=== PATIENT | male | born 1955 | race Caucasian/White ===

== ENCOUNTER 2020-03-11 11:30 | Inpatient (IN) | payer OTHER ==
[~2020-03-11] VITALS: Ht 180.3 cm; Wt 101.9 kg
[~2020-03-11 11:30] MED LIST: ACETAMINOPHEN325 M1 PO; IBUPROFEN 200200 M1 PO; LEVO-T100 MCG PO; NORCO 5-325 TA1 EAC1 PO; PENICILLIN V P500 MG PO; ZOCOR 20 MG TAB20 M1 PO
[2020-03-11] MEDS ORDERED: LIPITOR 40 MG T40 M1 PO (11:46)
[2020-03-11] MEDS ORDERED: CARVEDILOL3.125 MG PO (11:46)
[2020-03-11] MEDS ORDERED: ASPIR 8181 MG PO (11:49)
[2020-03-11 14:30] VITALS: BP 117/71
[2020-03-11 15:50] LABS: URINE BILIRUBIN NEGATIVE (Negative); URINE BLOOD 1+ (Negative); URINE CLARITY CLEAR; URINE COLOR YELLOW; URINE GLUCOSE-RANDOM* NEGATIVE (Negative); URINE KETONES NEGATIVE (Negative); URINE LEUKOCYTES-REFLEX NEGATIVE (Negative); URINE NITRITE-REFLEX NEGATIVE (Negative); URINE PROTEIN (DIPSTICK) NEGATIVE (Negative); URINE UROBILINOGEN 0.2 E.U./dl (0.2-1.0)
[2020-03-11 16:00] VITALS: BP 117/71
[2020-03-11 16:10] LABS: BACTERIA-REFLEX 1-9 Few /HPF (None Seen); CASTS None Seen /LPF (None Seen); CRYSTALS None Seen /LPF (None Seen); SQUAMOUS None Seen /LPF (0-3); URINE RBC None Seen /HPF (0-2); URINE WBC-REFLEX None Seen /HPF (0-5)
--- NOTE | 2020-03-11 19:23 | NUR ---
PT CARE ASSUMED APPROX 1430. ASSESSMENT CHARTED. MEDICATION CHARTED. RAC IV; AGGRASTAT UNTIL 0100 03/12/20 THEN D/C. CATH 03/07; RT GROIN, LOTS OF BRUISING; [address] MAIN. CABG 03/12/20. MRSA, COVID, CAROTID, UA COMPLETED AT [facility] ([facility] MRSA, UA COMPLETED HER TO BE CERTAIN IT WAS DONE IN TIME. PT IN US FOR VEIN STUDY AT 1830. PHARMACY OBTAINING AGGRASTAT FROM [facility]) IT IS NOT ON OUR FORMULARY.
[2020-03-11 20:00] VITALS: BP 129/72
[2020-03-12] VITALS (7 sets, daily range): BP systolic 88–120; BP diastolic 55–71
--- NOTE | 2020-03-12 04:20 | NUR ---
ASSESSMENTS CHARTED, MEDS CHARTED GIVEN. PATIENT RESTING IN BED DURING SHIFT. DENIED PAIN. PATIENT ON IV MED AGGRASTA. THIS IS A MED WE NORMALLY DO NOT HAVE AVAILABLE. PHARMACY HAD SOME SENT FROM [facility] WHERE THIS PATIENT TRANSFERED FROM. MED WAS GIVEN UNTIL 0100 THEN DC'D PER DOCTORS ORDERS. PATIENT TOOK HEPACLENS SHOWER LAST NIGHT AND WILL REPEAT SHOWER THIS MORNING PRIOR TO LEAVING FOR CABG. NPO SINCE MIDNIGHT. PATIENT HAS RIGHT GROIN BRUISING FROM PREVIOUS CATH PROCEDURE.
[2020-03-12 04:37] LABS: CALCIUM 9.3 mg/dL (8.5-10.1); POTASSIUM 4.1 mmol/L (3.5-5.1)
[2020-03-12 04:40] LABS: HEMATOCRIT 37.9 % (42.0-52.0); HEMOGLOBIN 12.7 gm/dL (14.0-18.0); MCH 33.7 pg (26.0-34.0); MCHC 33.7 g/dL (28.0-37.0); RBC 3.79 mil/uL (4.50-6.00); WBC 11.1 thou/uL (4.0-11.0)
[2020-03-12 12:16] LABS: MCH 33.7 pg (26.0-34.0); MCHC 33.8 g/dL (28.0-37.0); MCV 99.8 fL (80.0-100.0); RBC 2.62 mil/uL (4.50-6.00); RDW 12.9 % (10.5-14.5); WBC 16.8 thou/uL (4.0-11.0)
[2020-03-12 12:17] LABS: HEMATOCRIT 26.1 % (42.0-52.0); HEMOGLOBIN 8.8 gm/dL (14.0-18.0)
[2020-03-12 12:32] LABS: APTT 27.3 Seconds (24.5-32.8); FIBRINOGEN 380.4 mg/dL (210-360); INR 1.3; PROTIME 13.8 Seconds (9.3-11.4)
[2020-03-12 13:05] LABS: POC BE -1 mmol/L (-2.0 to +3.0); POC GLUCOSE 106 mg/dL (70-99); POC HCO3 24.1 mmol/L (22.0-26.0); POC HEMOGLOBIN 11.6 g/dL (14.0-18.0); POC POTASSIUM 4.4 mmol/L (3.5-5.1); POC SODIUM 137 mmol/L (136-145); POC pCO2 39.8 mmHg (35.0-45.0)
[2020-03-12 13:06] LABS: POC BE -2 mmol/L (-2.0 to +3.0); POC CA IONIZED 4.6 mg/dL (4.5-5.3); POC GLUCOSE 200 mg/dL (70-99); POC HCO3 24.4 mmol/L (22.0-26.0); POC HEMOGLOBIN 9.2 g/dL (14.0-18.0); POC POTASSIUM 5.4 mmol/L (3.5-5.1); POC SODIUM 137 mmol/L (136-145); POC pCO2 49.1 mmHg (35.0-45.0); POC pH 7.304 (7.360-7.450)
[2020-03-12 13:06] LABS: POC BE -3 mmol/L (-2.0 to +3.0); POC CA IONIZED 5.6 mg/dL (4.5-5.3); POC GLUCOSE 187 mg/dL (70-99); POC HCO3 23.2 mmol/L (22.0-26.0); POC HEMOGLOBIN 8.5 g/dL (14.0-18.0); POC POTASSIUM 4.3 mmol/L (3.5-5.1); POC SODIUM 137 mmol/L (136-145); POC pCO2 48.2 mmHg (35.0-45.0)
[2020-03-12 13:06] LABS: POC BE -5 mmol/L (-2.0 to +3.0); POC CA IONIZED 4.5 mg/dL (4.5-5.3); POC GLUCOSE 165 mg/dL (70-99); POC HCO3 20.9 mmol/L (22.0-26.0); POC HEMOGLOBIN 9.5 g/dL (14.0-18.0); POC POTASSIUM 5.2 mmol/L (3.5-5.1); POC SODIUM 134 mmol/L (136-145); POC pCO2 38.9 mmHg (35.0-45.0); POC pH 7.339 (7.360-7.450)
[2020-03-12 13:06] LABS: POC BE -1 mmol/L (-2.0 to +3.0); POC CA IONIZED 4.9 mg/dL (4.5-5.3); POC GLUCOSE 144 mg/dL (70-99); POC HCO3 24.4 mmol/L (22.0-26.0); POC HEMOGLOBIN 11.6 g/dL (14.0-18.0); POC POTASSIUM 4.8 mmol/L (3.5-5.1); POC SODIUM 136 mmol/L (136-145); POC pCO2 41.3 mmHg (35.0-45.0)
[2020-03-12 13:06] LABS: POC BE 0 mmol/L (-2.0 to +3.0); POC CA IONIZED 4.5 mg/dL (4.5-5.3); POC GLUCOSE 211 mg/dL (70-99); POC HCO3 26.5 mmol/L (22.0-26.0); POC HEMOGLOBIN 9.2 g/dL (14.0-18.0); POC POTASSIUM 5.5 mmol/L (3.5-5.1); POC SODIUM 138 mmol/L (136-145); POC pCO2 54.7 mmHg (35.0-45.0); POC pH 7.294 (7.360-7.450)
[2020-03-12 13:06] LABS: POC BE -3 mmol/L (-2.0 to +3.0); POC CA IONIZED 4.6 mg/dL (4.5-5.3); POC GLUCOSE 219 mg/dL (70-99); POC HCO3 25.4 mmol/L (22.0-26.0); POC HEMOGLOBIN 8.8 g/dL (14.0-18.0); POC POTASSIUM 5.2 mmol/L (3.5-5.1); POC SODIUM 135 mmol/L (136-145); POC pCO2 68.9 mmHg (35.0-45.0); POC pH 7.174 (7.360-7.450)
[2020-03-12 13:06] LABS: POC BE -2 mmol/L (-2.0 to +3.0); POC GLUCOSE 154 mg/dL (70-99); POC HCO3 23.4 mmol/L (22.0-26.0); POC HEMOGLOBIN 9.5 g/dL (14.0-18.0); POC POTASSIUM 4.2 mmol/L (3.5-5.1); POC SODIUM 139 mmol/L (136-145); POC pCO2 43.8 mmHg (35.0-45.0); POC pH 7.337 (7.360-7.450)
[2020-03-12 13:06] LABS: POC BE -2 mmol/L (-2.0 to +3.0); POC CA IONIZED 4.4 mg/dL (4.5-5.3); POC GLUCOSE 211 mg/dL (70-99); POC HCO3 24.6 mmol/L (22.0-26.0); POC HEMOGLOBIN 9.2 g/dL (14.0-18.0); POC POTASSIUM 5.4 mmol/L (3.5-5.1); POC SODIUM 135 mmol/L (136-145); POC pCO2 49.5 mmHg (35.0-45.0); POC pH 7.303 (7.360-7.450)
[2020-03-12 13:58] LABS: HEMATOCRIT 30.9 % (42.0-52.0); HEMOGLOBIN 10.4 gm/dL (14.0-18.0); MCH 33.6 pg (26.0-34.0); MCHC 33.7 g/dL (28.0-37.0); MCV 99.6 fL (80.0-100.0); RBC 3.1 mil/uL (4.50-6.00); WBC 24.2 thou/uL (4.0-11.0)
[2020-03-12 14:12] LABS: CREATININE 1.1 mg/dL (0.7-1.3); MAGNESIUM 2.7 mg/dL (1.8-2.4); POTASSIUM 4.6 mmol/L (3.5-5.1)
[2020-03-12 14:14] LABS: APTT 28.4 Seconds (24.5-32.8); INR 1.2; PROTIME 11.9 Seconds (9.3-11.4)
[2020-03-12 14:22] LABS: BE(vivo) -4.5 mmol/L (-2 to +3); HCO3 21.7 mmol/L (22.0-26.0); PCO2 44.6 mmHg (35.0-45.0); PO2 82.9 mmHg (80.0-100.0); sO2 95.2 % (92.0-98.0)
[2020-03-12 14:23] LABS: pH 7.305 (7.360-7.450)
--- NOTE | 2020-03-12 15:00 | NUR ---
PT CAME FROM THE OR ACCOMPANIED BY NURSING STAFF AT 1332. PT WAS CONNECTED TO ICU MONITORS. PT ON VENTILATOR. PT ON CARDENE AND PROPOFOL GTT. DR. RAMÍREZ AND SAYRA AT BEDSIDE. CONTINUE TO MONITOR.
--- NOTE | 2020-03-12 16:02 | EKG ---
[facility] [place] [address] ELECTROCARDIOGRAM REPORT Name: CHELITA BARRDIE Room #: 251-P ADM IN M.R.#: [id number] Admission: 03/11/20 Attend Phys: Jalen Goodman MD Discharge: Date of : 57 Report #: [id number] THIS REPORT FOR: cc: NORAH - Kylah family physician/PCP NORAH - Kylah family physician/PCP Isidro Nelson MD [facility] THIS REPORT FOR: //name// [facility] Test Date: 2020-03-12 Test Time: 15:24:21 Pat Name: QUIRINO BARR Department: Room: [facility] Gender: M Ssis Etl Developer: BPIERCE2 : 1955 Requested By: Daniel Epps Order Number: [id number] MD: Isidro Nelson Measurements Intervals [place] Rate: 88 P: 0 OK: 162 QRS: 15 QRSD: 96 T: 13 QT: 332 QTc: 402 Interpretive Statements Sinus rhythm Probable left atrial enlargement Abnormal R-wave progression, early transition Borderline repolarization abnormality No previous ECG available for comparison Electronically Signed On 03-12-2020 16:02:40 CDT by Isidro Nelson [email or web address] <ELECTRONICALLY SIGNED> By: Isidro Nelson MD, FACC 03/12/20 1602 1524 1524 Isidro Nelson MD, [facility] /EPI
[2020-03-12 16:26] LABS: BE(vivo) -5.8 mmol/L (-2 to +3); HCO3 19.7 mmol/L (22.0-26.0); PCO2 38.5 mmHg (35.0-45.0); PO2 101.6 mmHg (80.0-100.0); pH 7.326 (7.360-7.450); sO2 97.3 % (92.0-98.0)
--- NOTE | 2020-03-12 17:00 | NUR ---
PT OFF SEDATION. ATTEMPTED CPAP TRIAL AT 1545 FOR 30 MINUTES. ABG WERE DONE. ABG RESULT CALLED TO SAYRA AT 1625. PT EXTUBATED AT 1630 BY RT XIN. PT CURRENTLY ON 35% FACEMASK. CONTINUE TO MONIOR.
[2020-03-12 21:04] LABS: HEMATOCRIT 25.8 % (42.0-52.0); HEMOGLOBIN 8.8 gm/dL (14.0-18.0); MCH 33.7 pg (26.0-34.0); MCHC 34.2 g/dL (28.0-37.0); MCV 98.7 fL (80.0-100.0); RBC 2.62 mil/uL (4.50-6.00); RDW 12.7 % (10.5-14.5); WBC 16.4 thou/uL (4.0-11.0)
[2020-03-13] VITALS (43 sets, daily range): BP systolic 104–136; BP diastolic 46–74
[2020-03-13 06:36] LABS: HEMATOCRIT 22.3 % (42.0-52.0); HEMOGLOBIN 7.4 gm/dL (14.0-18.0); MCH 33.3 pg (26.0-34.0); MCHC 33.1 g/dL (28.0-37.0); MCV 100.4 fL (80.0-100.0); RBC 2.22 mil/uL (4.50-6.00); RDW 13.1 % (10.5-14.5); WBC 13.4 thou/uL (4.0-11.0)
[2020-03-13 06:57] LABS: CALCIUM 8.3 mg/dL (8.5-10.1); CREATININE 1.4 mg/dL (0.7-1.3); MAGNESIUM 2.6 mg/dL (1.8-2.4); POTASSIUM 4.6 mmol/L (3.5-5.1)
[2020-03-13 07:09] LABS: INR 1.4; PROTIME 14.5 Seconds (9.3-11.4)
--- NOTE | 2020-03-13 07:40 | NUR ---
SEE CEED Tech FOR ASSESSMENT. PT C/O OF SURGICAL PAIN-FENTANYL IV GIVEN ORDERED. UNABLE TO TAKE HYDROCODONE FOR BETTER PAIN CONTROL. MONITOR SHOWS SR. HEMODYNAMICS IMPROVED WITH FLUIDS, UO ADEQUATE, AND MSCT DRAINAGE SLOWED DOWN. ON 4LNC. 02SAT WNL. CONT TO ENC D/DB IS UP TO 1000. DRSG D/I. WILL CONT TO MONITOR. CONT PLAN OF CARE
--- NOTE | 2020-03-13 08:22 | EKG ---
[facility] [place] [address] ELECTROCARDIOGRAM REPORT Name: QUIRINO BARR Room #: 251-P ADM IN M.R.#: [id number] Admission: 03/11/20 Attend Phys: Jalen Goodman MD Discharge: Date of : 57 Report #: [id number] THIS REPORT FOR: cc: NORAH - Kylah family physician/PCP NORAH - Kylah family physician/PCP Sabas Bojorquez MD [facility] THIS REPORT FOR: //name// [facility] Test Date: 2020-03-13 Test Time: 08:15:50 Pat Name: QUIRINO BARR Department: Room: 251 Gender: M Scientific Advisor: RACHANA : 1955 Requested By: Daniel Epps Order Number: [id number] MD: Sabas Bojorquez Measurements Intervals [place] Rate: 79 P: 22 DE: 120 QRS: -12 QRSD: 89 T: -33 QT: 384 QTc: 441 Interpretive Statements Sinus rhythm Atrial premature complexes Abnormal R-wave progression, early transition Inferior infarct, age indeterminate Compared to ECG 03/12/2020 15:24:21 Atrial premature complex(es) now present Electronically Signed On 03-13-2020 8:22:39 CDT by Sabas Bojorquez [email or web address] <ELECTRONICALLY SIGNED> By: Sabas Bojorquez MD, FACC 03/13/20821 4 4 Sabas Bojorquez MD, FACC /EPI
--- NOTE | 2020-03-13 08:59 | NUR ---
ALERT AND ORIENTED AND VITALS STABLE. C/O PAIN WITH DEEP BREATHING-STARTED ON IV TYLENOL. RASHI DC'D PER ORDER. RT. PNEUMOTHORAX REPORTED BY RADIOLOGIST TO SAYRA. CHEST TUBE PLACED AT BEDSIDE BY DR. RAMÍREZ AND PATIENT TOLERATED WELL. UPDATED OVER THE PHONE. OTHER CHEST TUBES AND INCISIONS DOCUMENTED.
--- NOTE | 2020-03-13 12:55 | NUR ---
Nutrition: Pt POD 1 CABG. Consult received. Will followup when out of ICU to determine education needs
--- NOTE | 2020-03-13 14:07 | NUR ---
chart review. unable to visit with sarah jefferson resting. cm left message on his phone. cm spoke with benny via phone call, intro to cm and dcp. she reported, we live in , 3 steps to enter. he has been helping me for my low bp last 4 months. i am wheel bound. he is independent, no on any medications. drives vehicle and i am worried cause he drove himself to the hospital. he was working outside home till i go sick. have our daughter, she works and has kids. i am staying for 5 days with my mom but she is in senior community and not sure where i can go after 5 days, i cant stay here. his pcp ragini west with [facility] in [place]. never needed any help, no hh or rehab in the past. just worried about him, glade he made it to hospital driving himself.
--- NOTE | 2020-03-13 15:22 | NUR ---
DR. PRIETO'S NURSE HARLEY NOTIFIED OF CONSULT AND WILL PASS IT ON TO MD TO ROUND ON PATIENT. PATIENT UP IN THE CHAIR WITH ASSISTANCE FROM P.T. CONTINUES TO C/O PRN FENTANYL AND SCHEDULED I.V. TYLENOL ADMINISTERED.
--- NOTE | 2020-03-13 15:57 | O ---
[facility] [place] [address] [place] [address] OPERATIVE REPORT Name: QUIRINO BARR Room #: 251-P ADM IN M.R.#: [id number] Admission: 03/11/20 Attend Phys: Jalen Goodman MD Discharge: Date of : 57 Report #: [id number] THIS REPORT FOR: cc: NORAH - No family physician/PCP NORAH - No family physician/PCP Kanu Capps MD ~ CC: Jalen ALMAZAN physician/PCP DATE OF SERVICE: 03/12/2020 PREOPERATIVE DIAGNOSIS: Coronary artery disease. POSTOPERATIVE DIAGNOSIS: Coronary artery disease. OPERATION: Coronary artery bypass x 4 including left internal mammary artery to left anterior descending artery, saphenous vein to first marginal and distal marginal and saphenous vein to posterior descending artery and endoscopic harvest, left greater saphenous vein. SURGEON: Kanu Capps M.D. STRIPPING MACHINE OPERATOR: Mario Alberto Melara ANESTHESIA: General. INDICATIONS: The patient is a 64-year-old sent from [place] for coronary artery bypass surgery. The patient had acute myocardial infarct that was treated by Dr. Lopez and a heroic effort by dilating the high-grade left main coronary stenosis on 03/08/2020. The patient also has other important so called 3-vessel coronary artery disease. Left ventricular function is preserved thanks to the emergent angioplasty. FINDINGS AND TECHNIQUE: After general anesthesia was established, saphenous vein was harvested using an endoscopic approach and prepared for use as a conduit. Exposure was obtained through median sternotomy. Left internal mammary artery was harvested from chest wall. Pericardial well was made. Cannulation sutures were placed. Heparin was given. Aorta was cannulated. Right atrium was cannulated. Cardioplegia needle was positioned in the aortic root. Retrograde cardioplegic catheter was placed in the coronary sinus. Cardiopulmonary bypass was established. Aorta was cross clamped. Antegrade and retrograde cardioplegia were given. Ice was poured into the pericardial well. The heart was stopped. [facility] [address] [place] [address] OPERATIVE REPORT Name: QUIRINO BARR Room #: 251-P [facility] IN ..#: [id number] Admission: 03/11/20 Attend Phys: Jalen Goodman MD Discharge: Date of : 57 Report #: [id number] During electromechanical arrest, the distal anastomoses were performed. An end-to-side anastomosis was made between vein and the posterior descending artery. This was a diffusely diseased vessel, but it was 1.5 mm or bypassed. Cold cardioplegia was given. Separate segment of vein was sewn in end-to-side fashion to a large distal marginal. This was a 1.5 mm vessel. Cold cardioplegia was given. The same segment of vein was sewn in [id number] fashion to the first marginal. This was a 1.7 mm vessel. Cold cardioplegia was given. Left internal mammary artery was sewn in end-to-side fashion to the left anterior descending artery. Patency of this vessel was checked with the temperature technique. Cold cardioplegia was given. Two proximal anastomoses were performed. When these were complete, warm retrograde cardioplegia was given, followed by warm continuous blood. When this infusion was complete, the crossclamp was removed, de-airing maneuvers were performed. The anastomoses were inspected and found to be satisfactory. As the patient warmed, nice cardiac activity resumed, chest tubes and pacing wires were placed, a marker was placed around the proximal anastomoses. When the patient was warm, he was weaned from cardiopulmonary bypass. Venous cannula was removed. Protamine was given, the aortic cannula was removed. Flows were measured in the bypass grafts. When hemostasis was satisfactory, chest was irrigated with antibiotic solution and closed in the usual fashion. The patient was taken to the Intensive Care Unit in good condition having tolerated the procedure well. All counts reported as correct. <ELECTRONICALLY SIGNED> By: Kanu Capps MD 03/13/20 1557 1519 1540 Kanu Capps MD /nt
--- NOTE | 2020-03-13 15:57 | HC ---
[facility] [place] [address] CONSULTATION Name: QUIRINO BARR Room #: 251-P ADM IN M.R.#: [id number] Admission: 03/11/20 Attend Phys: Jalen Goodman MD Discharge: Date of : 57 Report #: [id number] THIS REPORT FOR: cc: FAM - No family physician/PCP FAM - No family physician/PCP Kanu Capps MD ~ DATE OF SERVICE: 03/11/2020 We were asked to see the patient by Dr. Crenshaw and Dr. Lopez. HISTORY OF PRESENT ILLNESS: The patient is a 64-year-old who was transferred from [place] for coronary artery bypass surgery. The patient was admitted on 03/08/2020 with acute myocardial infarct and this was treated with an acute angioplasty and stent placement in the left main coronary artery by Dr. Lopez at [place]. Left ventricular function was shown to have been preserved by echo after the procedure. The patient presented with several days of chest pain that became so called crushing chest pain. He was admitted with ST elevation ____ EKG and had emergent cardiac catheterization. Left main stenosis with thrombus was noted and treated. PAST MEDICAL HISTORY: The patient denies chronic disease. He is treated for elevated cholesterol. He also takes thyroid replacement, status post thyroidectomy. The patient denies diabetes mellitus and hypertension. SOCIAL HISTORY: The patient is a longtime smoker who had quit cigarettes and started cigars. 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 ALLERGIES: The patient states he has adverse reaction to hydrocodone that is not a true allergy. SOCIAL HISTORY: The patient is . 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 REVIEW OF SYSTEMS: CONSTITUTIONAL: No fever or chills. EYES: Wears glasses. HEENT: No headache, no hearing problems, no nasal discharge. RESPIRATORY: Denies cough, shortness of breath. CARDIAC: As mentioned several days of chest pain prior to the crushing pain at the presentation. GASTROINTESTINAL: No nausea, vomiting, diarrhea, or blood. GENITOURINARY: No urgency, frequency, or blood. MUSCULOSKELETAL: Denies bone and joint problems. NEUROLOGIC: Denies motor and sensory problems. [facility] [address] [place] [address] CONSULTATION Name: QUIRINO BARR Room #: 251-P [facility] IN ..#: [id number] Admission: 03/11/20 Attend Phys: Jalen Goodman MD Discharge: Date of : 57 Report #: [id number] SKIN: Denies rash or infection. PSYCHIATRIC: Denies depression or anxiety. PHYSICAL EXAMINATION: GENERAL: The patient is sitting in bed after transfer comfortable. VITAL SIGNS: Temperature 36.1, heart rate 62, blood pressure 117/71, respiratory rate 18. HEENT: No scleral icterus, no arcus. NECK: No mass, no bruit. We do note thyroidectomy incision. CHEST: Clear to auscultation. HEART: Rhythm regular, no murmurs. ABDOMEN: Soft, no mass, no tenderness. EXTREMITIES: No clubbing, cyanosis or edema. VASCULAR: No obvious saphenous vein problems, 1-2+ popliteal pulses bilaterally. I do not feel pedal pulses. SKIN: No rash or infection. MUSCULOSKELETAL: No bone or joint asymmetry or deformity. PSYCHIATRIC: Shows ____ problems, has a positive attitude and does not have a depressed affect. IMPRESSION: The patient has important 3-vessel coronary artery disease by cardiac catheterization. The patient has been transferred here for coronary bypass surgery. Risks and details of all those were discussed with the patient. Risks include but are not limited to bleeding, infection, anesthesia risks, heart problems, lung problems, stroke and . Options and alternatives were reviewed. The patient understands all of this and wishes to proceed. The patient is on Aggrastat drip and he will be maintained on this until approximately 6 hours before surgery. Thank you for the consult. <ELECTRONICALLY SIGNED> By: Kanu Capps MD 03/13/20 1557 1526 1953 Kanu Capps MD /nt
[2020-03-14] VITALS (24 sets, daily range): BP systolic 105–147; BP diastolic 53–87
[2020-03-14 05:36] LABS: HEMOGLOBIN 6.6 gm/dL (14.0-18.0); WBC 22.2 thou/uL (4.0-11.0)
[2020-03-14 05:38] LABS: MCH 33.4 pg (26.0-34.0); MCHC 33.5 g/dL (28.0-37.0); MCV 99.7 fL (80.0-100.0); RBC 1.99 mil/uL (4.50-6.00)
[2020-03-14 05:44] LABS: CALCIUM 8.9 mg/dL (8.5-10.1); CREATININE 1.3 mg/dL (0.7-1.3); POTASSIUM 4.4 mmol/L (3.5-5.1)
[2020-03-14 05:51] LABS: HEMATOCRIT 19.8 % (42.0-52.0)
--- NOTE | 2020-03-14 10:57 | NUR ---
PT/OT WORKED WITH PATIENT TODAY FROM 0437-9178
--- NOTE | 2020-03-14 12:23 | NUR ---
message from román from [employer] called if needed oupt needs call for assistance at [phone] ext [phone]. pt only been up out of bed to recliner chair. therapy going to come back and work with him later today.
--- NOTE | 2020-03-14 18:26 | NUR ---
ASSUMED CARE OF PT AT APPROX 1715 TRANSFER FROM ICU, CABG POD2. ASSESSMENT CHARTED. PT A&OX4, RATES PAIN 3/10, NO DISTRESS. PT SETTLED IN ROOM DINNER TRAY ARRIVED. WILL CONTINUE TO MONITOR AND FOLLOW POC.
[2020-03-15 04:15] VITALS: BP 118/65
[2020-03-15 05:40] LABS: HEMATOCRIT 22.4 % (42.0-52.0); HEMOGLOBIN 7.4 gm/dL (14.0-18.0); MCH 32.6 pg (26.0-34.0); MCHC 33.2 g/dL (28.0-37.0); MCV 98.3 fL (80.0-100.0); RBC 2.28 mil/uL (4.50-6.00); RDW 14.7 % (10.5-14.5); WBC 18.9 thou/uL (4.0-11.0)
[2020-03-15 05:55] LABS: CALCIUM 8.7 mg/dL (8.5-10.1); POTASSIUM 4.7 mmol/L (3.5-5.1)
[2020-03-15 07:40] VITALS: BP 100/60
--- NOTE | 2020-03-15 09:39 | NUR ---
ASSUMED CARE OF PT AT SHIFT CHANGE, ALL EQUIPMENT AND LINES IN PLACE, REPORTS OF CHEST TUBE EQUIPMENT W/LEAK AND ALL PHYSICIANS AWARE, CIPRIANO AND DR. RAMÍREZ CLAMPED HIS R CHEST TUBE THIS A.M., PT WITH SOA W/AMBULATION. GAVE INSTRUCTION/ENCOURAGEMENT ON THE DEEP SLOW INHALATIONS WITH LONG SLOW EXHALATION. PT TO WALK WITH PT WELL MARIELA CAN STACKER DID SO EARLIER THIS A.M. SEE SEPARATE INTERVENTIONS FOR ASSESSMENTS. WILL CONTINUE TO MONITOR
[2020-03-15 11:10] VITALS: BP 99/65
[2020-03-15 14:21] LABS: DIRECT BILIRUBIN 0.2 mg/dL (<0.1-0.2); TOTAL BILIRUBIN 0.5 mg/dL (0.2-1.0); TOTAL PROTEIN 6.4 g/dL (6.4-8.2)
--- NOTE | 2020-03-15 14:52 | NUR ---
FAXED REFERRAL TO [facility] SPOKE WITH FAVIOLA IN INTAKE SHE RECEIVED REFERRAL AND WILL BE ABLE TO ACCEPT LONG PT IS NOT ON IV ABX AND WILL PUT PT ON SCHEDULE FOR WEDNESDAY. IF PT DISCHARGES OVER WEEKEND FAX DC ORDERS TO [phone] AND CALL [phone] NOTIFY OF DC.
[2020-03-15 15:53] VITALS: BP 99/56
--- NOTE | 2020-03-15 17:11 | NUR ---
Case discussed with the care team. Pt is pod #3 s/p CABGx4. Chest tube being dc'd today per CTS but may need HH at dc. Pt started on iv vanco due to pneumonia. No weekend dc anticipated. [facility] is a [employer] provider if needed at dc ( but not able to do iv atb). Should the pt need a rehab consult, [facility] is out of network. Will reassess early next week for either HH at dc or rehab referrals.
[2020-03-15 19:45] VITALS: BP 108/80
[2020-03-16 03:25] VITALS: BP 96/59
[2020-03-16 04:27] LABS: HEMATOCRIT 21.9 % (42.0-52.0); HEMOGLOBIN 7.4 gm/dL (14.0-18.0); MCH 33.3 pg (26.0-34.0); MCHC 33.5 g/dL (28.0-37.0); MCV 99.4 fL (80.0-100.0); RBC 2.21 mil/uL (4.50-6.00); RDW 14.3 % (10.5-14.5); WBC 18.6 thou/uL (4.0-11.0)
[2020-03-16 04:46] LABS: CALCIUM 8.6 mg/dL (8.5-10.1); CREATININE 1.1 mg/dL (0.7-1.3); POTASSIUM 4.5 mmol/L (3.5-5.1)
--- NOTE | 2020-03-16 05:10 | NUR ---
ASSUMED PATIENT CARE AT 1845. VITAL SIGNS STABLE WITH PATIENT HAVING NO COMPLAINTS OF NAUSEA. PATIENT DID COMPLAIN OF PAIN ONCE AND WAS TREATED EFFECTIVELY THROUGH MEDICATION AND REPOSITIONING. FULLY ORIENTED, PATIENT IS ABLE TO CALL APPROPRIATELY FOR NEEDS AND PARTICIPATE IN CARE. BREATHING STABLE ON LOW LEVEL OXYGEN EVIDENCED BY ASSESSMENTS AND SPOT OXYGENATION CHECKS. SURGICAL SITES C/D/I WITH NO EVIDENCE OF BLEEDING FROM CHEST TUBE SITE. UP WITH ASSISTANCE INCIDENT FREE. CONTINUE PLAN OF CARE.
[2020-03-16 09:12] VITALS: BP 97/57
[2020-03-16 11:18] VITALS: BP 108/63
--- NOTE | 2020-03-16 11:18 | NUR ---
ASSUMED CARE OF PT AT SHIFT CHANGE, NO PAIN RELIEF MEDS IN BETWEEN HIS OXY Q 12H, PA COMING IN SOON SO ENCOURAGED PT TO REACH OUT IF HE SAW HIM FIRST. ENCOURAGED HIM TO USE CALL LIGHT FOR ANY NEEDS. SEE SEPARATE INTERVENTION FOR ASSESSMENTS. PT SHOWERED WITH OT AND DRESSING RE-DRESSED BY SAYRA WATSON. GOT PT COFFEE FROM [employer] OUR COFFEE HE WON'T TOUCH EVEN THOUGH HE DRINKS A POT A DAY, PER PT. HAS GLYCERIN SUPPOSITORY DUE, LAST EVENING DEFERRED, AND THIS A.M DEFERRED AND WANTS TO WAIT TO SEE IF HIS ACTIVITY AND [employer] COFFEE IS EFFECTIVE. WILL CONTINUE TO MONITOR
--- NOTE | 2020-03-16 13:10 | EKG ---
[facility] [address] [place] [address] ELECTROCARDIOGRAM REPORT Name: CHELITA BARRDIE Room #: 212-P ADM IN M.R.#: [id number] Admission: 03/11/20 Attend Phys: Jalen Goodman MD Discharge: Date of : 57 Report #: [id number] THIS REPORT FOR: cc: NORAH - No family physician/PCP FAM - No family physician/PCP Dex Mcgill MD ~ THIS REPORT FOR: //name// [facility] Test Date: 2020-03-16 Test Time: 08:30:55 Pat Name: QUIRINO BARR Department: Room: 212 P Gender: M [place] Measurer: Domonique CARO : 1955 Requested By: Daniel Epps Order Number: [id number] MD: Dex Mcgill Measurements Intervals [place] Rate: 64 P: 51 VT: 156 QRS: -10 QRSD: 94 T: 15 QT: 484 QTc: 500 Interpretive Statements Sinus rhythm early transition Inferior Q waves present consider inferior wall infarct old Nonspecific ST-T wave change compared to ECG 03/13/2020 08:15:50 No significant differences Electronically Signed On 03-16-2020 13:10:33 CDT by Dex Mcgill [email or web address] <ELECTRONICALLY SIGNED> By: Dex Mcgill MD 03/16/20 1310 9 9 Dex Mcgill MD /EPI
[2020-03-16 15:59] VITALS: BP 119/68
[2020-03-16 19:15] VITALS: BP 117/69
[2020-03-17 05:00] VITALS: BP 106/63
--- NOTE | 2020-03-17 06:52 | NUR ---
ASSUMED CARE OF PATIENT AT 1900; AOX4; ASSESSMENTS CHARTED; SR/BBB ON THE MONITOR/VSS; C/O OF NONCARDIAC CHEST PAIN WITH RELIEF FROM MEDICATION; RESTED QUIELTY THROUGHOUT THE NIGHT; PLAN IS TO CONTINUE ANTIBIOTICS AND CONSULT ID; WILL CONTINUE TO MONITOR
[2020-03-17 07:11] VITALS: BP 101/53
[2020-03-17 08:21] LABS: ALBUMIN 2.7 g/dL (3.4-5.0); CALCIUM 8.1 mg/dL (8.5-10.1); PHOSPHORUS 2.3 mg/dL (2.5-4.9); POTASSIUM 4.1 mmol/L (3.5-5.1); TOTAL BILIRUBIN 0.6 mg/dL (0.2-1.0); TOTAL PROTEIN 5.5 g/dL (6.4-8.2)
[2020-03-17 11:01] VITALS: BP 96/56
[2020-03-17 15:48] VITALS: BP 110/62
[2020-03-17 17:25] LABS: BE(vivo) 0.9 mmol/L (-2 to +3); HCO3 23.9 mmol/L (22.0-26.0); PCO2 31.3 mmHg (35.0-45.0); pH 7.501 (7.360-7.450); sO2 88.8 % (92.0-98.0)
[2020-03-17 17:26] LABS: PO2 49.6 mmHg (80.0-100.0)
[2020-03-17 18:11] LABS: HEMOGLOBIN 7.2 gm/dL (14.0-18.0)
[2020-03-17 18:13] LABS: MCH 32.8 pg (26.0-34.0); MCHC 32.7 g/dL (28.0-37.0); MCV 100.6 fL (80.0-100.0); PLATELET COUNT 176 thou/uL (150-400); RBC 2.18 mil/uL (4.50-6.00); RDW 14.8 % (10.5-14.5); WBC 20.8 thou/uL (4.0-11.0)
--- NOTE | 2020-03-17 18:35 | NUR ---
ASSESSMENT CHARTED. PT ALERT AND ORIENTED. SOB NOTED WITH ACTIVITY AND AT REST. PT REPORT HAVING DIFFICULTY BREATHING. RT CALLED FOR RT TREATMENT. DR MORRISSEY NOTIFIED. ORDERS GIVEN TO CONSULT DR. HENRY AND TO TRANSFER PT TO ICU. CRITICAL ABG'S CALLED IN TO DR. MORRISSEY AND DR. HENRY. BIPAP INITIATED. PT WAITING TO BE TRANSFERED TO ICU ROOM 244. DR. RAMÍREZ NOTIFIED.
[2020-03-17 18:45] LABS: ABSOLUTE NEUTROPHILS 14.1 thou/uL (1.4-8.2); METAMYELOCYTES 3 %; NUCLEATED RBCS 1 /100WBC
[2020-03-17 18:46] LABS: MACROCYTES 2+
[2020-03-17 18:47] LABS: ANISOCYTOSIS 1+; POLYCHROMASIA 1+
--- NOTE | 2020-03-17 20:30 | NUR ---
PIV PLACED, PICC LINE NOT NEEDED AT THIS TIME PER SURVEY TECHNICIAN. 2 PIV LINES ARE ADEQUATE, IF MORE ACCESS IS NEEDED PICC CAN BE REORDERED AND WE WILL RETURN TO PLACE THE LINE
[2020-03-17 21:08] LABS: POTASSIUM 3.8 mmol/L (3.5-5.1)
[2020-03-17 21:12] LABS: BE(vivo) 0.9 mmol/L (-2 to +3); HCO3 24.1 mmol/L (22.0-26.0); PCO2 32.7 mmHg (35.0-45.0); PO2 127.5 mmHg (80.0-100.0); pH 7.485 (7.360-7.450); sO2 98.8 % (92.0-98.0)
--- NOTE | 2020-03-17 23:52 | NUR ---
RECIEVED PT FROM CCU-PT STATES BREATHING BETTER ON BIPAP. ABGS DONE.-PA02 ADEQUATE. STAT ECHO DONE. DR PRIETO READ RESULTS-RELAYED TO SAYRA WATSON/DR RAMÍREZ. NO NEW ORDERS. UPDATES GIVEN TO DR HENRY AND ANGELES HOT ROOM ATTENDANT. ORDERS TO HOLD OFF ON BLOOD, LASIX AND CT TONIGHT UNLESS CONDITION CHANGES. PT SLEEPING OFF AND ON. BIPAP AT .50 -KEEP SAT 99-100%. LS-COARSE RHONCI r>L. PRODUCTIVE COUGH. FEBRILE. COVID REPEAT DONE. BLOOD CULTURES ALREADY DONE TODAY. WILL CONT TO MONITOR
[2020-03-18] VITALS (32 sets, daily range): BP systolic 101–155; BP diastolic 54–71
[2020-03-18 04:07] LABS: GLYCOHEMOGLOBIN (HGB A1C) 5.4 % (4.8-5.6)
[2020-03-18 04:44] LABS: HEMOGLOBIN 6.7 gm/dL (14.0-18.0)
[2020-03-18 04:47] LABS: HEMATOCRIT 20.4 % (42.0-52.0); MCH 32.9 pg (26.0-34.0); MCHC 32.9 g/dL (28.0-37.0); MCV 100.2 fL (80.0-100.0); PLATELET COUNT 158 thou/uL (150-400); RBC 2.03 mil/uL (4.50-6.00); WBC 18.5 thou/uL (4.0-11.0)
--- NOTE | 2020-03-18 05:03 | NUR ---
Assumed pt care at 0100. Report taken from charge nurse. No sign of distress noted in pt. Pt is sleeping and resting comfortably. Denies any pain. Scheduled meds administered to pt. No acute events overnight. Continue to monitor. No further needs at this time.
[2020-03-18 05:08] LABS: ALBUMIN 2.3 g/dL (3.4-5.0); CALCIUM 8.3 mg/dL (8.5-10.1); MAGNESIUM 2.1 mg/dL (1.8-2.4); PHOSPHORUS 2.6 mg/dL (2.5-4.9); POTASSIUM 3.7 mmol/L (3.5-5.1); TOTAL BILIRUBIN 0.9 mg/dL (0.2-1.0); TOTAL PROTEIN 5.9 g/dL (6.4-8.2)
--- NOTE | 2020-03-18 07:58 | NUR ---
Pt TRANSFERRED TO ICU. WILL PLACE ON HOLD AND AWAIT NEW ORDERS TO RESUME WHEN APPROPRIATE
--- NOTE | 2020-03-18 08:02 | 2DMMODE ---
[facility] [place] [address] [place] [address] 2 D/M-MODE ECHOCARDIOGRAM Name: QUIRINO BARR Room #: 244-P ADM IN M.R.#: [id number] Admission: 03/11/20 Attend Phys: Jalen Goodman MD Discharge: Date of : 57 Report #: [id number] THIS REPORT FOR: cc: FAM - No family physician/PCP FAM - No family physician/PCP Sabas Bojorquez MD [facility] ~ APPROVED REPORT Study performed: 03/17/2020 19:29:20 EXAM: Limited 2D, Doppler, and color-flow Echocardiogram Patient Location: ICU Room #: 244 Status: on-call/STAT BSA: 2.20 HR: 69 bpm BP: 110/62 mmHg Indications Stat limited echo for respiratory failure status post CABG. Aortic Valve AoV Peak Benedicto.: 1.61 m/s AO Peak Gr.: 10.42 mmHg Tricuspid Valve TR Peak Benedicto.: 2.71 m/s TR Peak Gr.: 30.00 mmHg Left Ventricle The left ventricle is normal size. There is normal LV segmental wall motion. Left ventricular systolic function is normal. LVEF is 55-60%. Right Ventricle The right ventricle is normal size. The right ventricular systolic function is normal. Atria The left atrium size is normal. The right atrium size is normal. Aortic Valve No aortic regurgitation is present. There is no aortic valvular stenosis. [facility] [address] [place] [address] 2 D/M-MODE ECHOCARDIOGRAM Name: QUIRINO BARR Room #: 244-P ADM IN M.R.#: [id number] Admission: 03/11/20 Attend Phys: Jalen Goodman MD Discharge: Date of : 57 Report #: [id number] Mitral Valve The mitral valve is normal in structure. There is no mitral valve regurgitation noted. Tricuspid Valve The tricuspid valve is normal in structure. Trace to mild tricuspid regurgitation. Estimated PAP is 35-40 Great Vessels IVC is not well visualized. Pericardium There is no pericardial effusion. <Conclusion> Abbreviated and limited study Left ventricular systolic function is normal. There is normal LV segmental wall motion. LVEF is 55-60%. No aortic regurgitation is present. No aortic stenosis or insufficiency. The mitral valve is normal in structure. No mitral valve regurgitation There is no pericardial effusion. <ELECTRONICALLY SIGNED> By: Sabas Bojorquez MD, FACC 03/18/20800 0 0 Sabas Bojorquez MD, FACC /INF
--- NOTE | 2020-03-18 08:57 | NUR ---
PATIENT TRANSFERRED TO ICU DUE TO A CHANGE IN MEDICAL STATUS. WILL NEED NEW OT ORDERS WHEN MEDICALLY APPROPRIATE.
[2020-03-18 09:00] LABS: ABSOLUTE NEUTROPHILS 14.8 thou/uL (1.4-8.2); ANISOCYTOSIS 2+; METAMYELOCYTES 5 %; MYELOCYTES 3 %; NUCLEATED RBCS 3 /100WBC
[2020-03-18 09:01] LABS: MACROCYTES 1+; POLYCHROMASIA SLIGHT
--- NOTE | 2020-03-18 13:43 | NUR ---
chart review. noted pt moved to icu, sputum cult pending, [facility] if needed or need to sent out other referral for acute rehab to [facility] or [facility]. if needed. spoke with his daughter michelle. no complaints or concerns voiced. have nurse call with updates please. rah unable to visit with sarah rt short air at times. cm passed on to bedside nurse
[2020-03-18 16:19] LABS: HEMOGLOBIN 7.8 gm/dL (14.0-18.0)
[2020-03-18 16:22] LABS: HEMATOCRIT 23.5 % (42.0-52.0)
[2020-03-18 23:45] LABS: HEMATOCRIT 23.8 % (42.0-52.0)
[2020-03-19] VITALS (20 sets, daily range): BP systolic 97–133; BP diastolic 49–66
[2020-03-19 07:17] LABS: HEMATOCRIT 23.7 % (42.0-52.0); HEMOGLOBIN 7.8 gm/dL (14.0-18.0); MCH 31.8 pg (26.0-34.0); MCV 96.6 fL (80.0-100.0); RBC 2.46 mil/uL (4.50-6.00); RDW 17.2 % (10.5-14.5); WBC 18.6 thou/uL (4.0-11.0)
[2020-03-19 07:23] LABS: CALCIUM 8.3 mg/dL (8.5-10.1); POTASSIUM 3.8 mmol/L (3.5-5.1)
--- NOTE | 2020-03-19 07:46 | NUR ---
PT IN [facility] THIS AM. STATES BREATHING EASIER. -ON NC6L. LS-AUSC GOOD AERATION EXCEPT RLL BASE. GOOD COUGH-THICK SANCHEZ SECRETIONS. CONT TO ENC C/DB. DIURESISED FROM LASIX GIVEN. HBG REMAINED STALE. CONT PLAN OF CARE
--- NOTE | 2020-03-19 10:47 | NUR ---
Nutrition: pt seen for LOS. S/P CABG on 03/12, post op PNA. Developed PE w/ pneumothorax on 03/13 and required transfer back to ICU. Pt reports stable weights. Is eating well, 75-100% of meals on low fat diet, 2500 mL fluid restriction. Requires BIPAP at night. Last BM documented 03/18. RD reviewed heart healthy diet guidelines with pt at bedside. Had minimal questions. Consider low nutrition risk at this time.
--- NOTE | 2020-03-19 14:53 | NUR ---
1050-UP TO CHAIR W MIN ASSIST X2.--VW 1300-TO TOILET FOR BM. WALKED AROUND BED & KALIA WELL.UP W MINIMAL ASSIST X1. O2 DOWN TO 3L/NC. PT A LITTLE SOB GETTING BACK INTO BED BUT STATES IT'S THE MOST HE HAS DONE IN 4 OR 5 DAYS. CONT TO ENC PULM TOILET, SPLINTING OF STERNAL INCISION. USING ORAL TONSIL SX WELL.--VW
--- NOTE | 2020-03-19 18:33 | NUR ---
PT PROGRESSING, BEGAN THE SHIFT AT 6L/NC ENDING THE SHIFT AT 3L/NC MAINTAINING SAO2 OF 92% NO SPECIFIC CONCERNS STATED. SERGEY MIDLINE PLACED. HEPARIN GTT RUNNING, APTT SCHEDULED FOR 1999. BM X1. INCENTIVE SPIROMETRY 1.5L, GOAL OF 2L, TURNS SELF IN BED, CALLS APPROPERIATELY. CRACKLES STILL PRESENT AT R SIDE OF LUNG, NOT COARSE IN THE MORNING, MORE FINE AT THE END OF THE SHIFT
--- NOTE | 2020-03-19 20:21 | NUR ---
MIDLINE PLACED IN RUABASILIC FOR HEPARIN GTT.
[2020-03-20] VITALS (14 sets, daily range): BP systolic 105–119; BP diastolic 49–65
--- NOTE | 2020-03-20 08:25 | NUR ---
SEE [facility] FOR ASSESSMENT. PT RESTING OFF AND ON. SR. HEPARIN GTT -THERAPEUTIC RANGE THIS AM. NO BLEEDING NOTED. CONT TO ENC C/DB. IS UP TO 1500. GOOD COUGH. STILL BECOMES SOB WITH ACTIVITY. GOOD UO VIA URINAL. CONT PALMER OF CARE
--- NOTE | 2020-03-20 15:00 | NUR ---
PATIENT PROGRESSING TOWARDS OUTCOME GOALS EVIDENT BY UP IN THE CHAIR WITH 02 SAT IN THE MID 90'S. PRODUCTIVE COUGH THICK BEIGE SECRETIONS. STEADY GAIT.
--- NOTE | 2020-03-20 15:45 | NUR ---
PATIENT TRANSFERRED TO 209 PER W/C WITH BELONGINGS, AND O2. REPORT GIVEN TO [facility]. PATIENT STATES THAT HE IS BREATHING BETTER TODAY.
--- NOTE | 2020-03-20 18:21 | NUR ---
PT TRANSFERED FROM ICU IN STABLE CONDITION. ALERT AND ORIENTED. VSS. DENIED HAVING PAIN OR DISCOMFORT. STERNUM PRECAUTION ENFORCED. SR ON TELE. HEPARIN GTT INFUSING. NO CONCERNS AT THIS TIME.
[2020-03-21 02:54] VITALS: BP 113/66
[2020-03-21 06:04] LABS: HEMOGLOBIN 7.5 gm/dL (14.0-18.0); MCH 31.7 pg (26.0-34.0); MCHC 32.7 g/dL (28.0-37.0); MCV 96.9 fL (80.0-100.0); RBC 2.38 mil/uL (4.50-6.00); RDW 16.8 % (10.5-14.5); WBC 20.9 thou/uL (4.0-11.0)
[2020-03-21 08:15] VITALS: BP 100/59
[2020-03-21 11:55] VITALS: BP 112/63
--- NOTE | 2020-03-21 13:15 | NUR ---
Requesting PT/OT to re eval as the pt was put on hold with transfer back to ICU over the weekend. Pt now back on CCU. Heprin gtt per picc line. Pt is progressing. Will await therapy recommendations for possible dc to home with hh or rehab referrals. [facility] out of network [facility] Will follow.
[2020-03-21 16:10] VITALS: BP 119/64
--- NOTE | 2020-03-21 17:38 | NUR ---
ASSESSMENT CHARTED. PT ALERT AND ORIENTED. VSS. DENIED HAVING PAIN OR DISCOMFORT. UP IN THE CHAIR THIS SHIFT. STERNUM DRESSING C/D/I. HEPARIN GTT D/C. NO RESPIRATORY OR CARDIAC DISTRESS NOTED. NO CONCERNS AT THIS TIME.
[2020-03-21 20:02] VITALS: BP 119/64
[2020-03-22] VITALS (7 sets, daily range): BP systolic 115–122; BP diastolic 53–62
--- NOTE | 2020-03-22 04:43 | NUR ---
pt resting quietly in room, vss, no c/o pain incisions cdi, up adlib in room, states he is looking forward into going home soon, will con't to monitor per ppoc.
[2020-03-22 06:41] LABS: ABSOLUTE NEUTROPHILS 19.5 thou/uL (1.4-8.2); BASOPHILS 0.1 % (0.0-2.0); HEMATOCRIT 23.7 % (42.0-52.0); HEMOGLOBIN 7.6 gm/dL (14.0-18.0); LYMPHOCYTES 6.5 % (24.0-44.0); MCH 31.4 pg (26.0-34.0); MCHC 32.2 g/dL (28.0-37.0); MCV 97.5 fL (80.0-100.0); MONOCYTES 5.4 % (1.0-8.0); PLATELET COUNT 236 thou/uL (150-400); RBC 2.44 mil/uL (4.50-6.00); RDW 17.6 % (10.5-14.5); WBC 22.2 thou/uL (4.0-11.0)
[2020-03-22 06:50] LABS: ALBUMIN 2.5 g/dL (3.4-5.0); CALCIUM 8.6 mg/dL (8.5-10.1); CREATININE 1.1 mg/dL (0.7-1.3); MAGNESIUM 2.3 mg/dL (1.8-2.4); POTASSIUM 3.8 mmol/L (3.5-5.1); TOTAL BILIRUBIN 0.7 mg/dL (0.2-1.0)
--- NOTE | 2020-03-22 10:35 | NUR ---
Pt cleared by therapy for dc home with outpt f/u. Pt wanting to do outpt cardiac rehab at [facility] in [place]. Pt issued a st cane per [facility] and they were able to get auth from [employer]. No other cm intereventions indicated at this time. Pt dcing home via family car with his spouse.
[2020-03-22] MEDS ORDERED: CALTRATE-600 W1 EACH PO (11:27)
[2020-03-22] MEDS ORDERED: PEPCID20 MG PO (11:27)
[2020-03-22] MEDS ORDERED: XARELTO20 MG PO (11:27)
[2020-03-22] MEDS ORDERED: ALBUTEROL2.5 MG/0.5 INH (11:27)
[2020-03-22] MEDS ORDERED: PREDNISONE 20 M20 M1 PO (11:27)
[2020-03-22] MEDS ORDERED: CLOPIDOGREL75 MG PO (11:27)
[2020-03-22] MEDS ORDERED: XARELTO15 MG PO (11:27)
[2020-03-22] MEDS ORDERED: AUGMENTIN 875-1 EACH PO (11:27)
[2020-03-22] MEDS ORDERED: GABAPENTIN 100100 MG PO (11:27)
--- NOTE | 2020-03-22 13:54 | NUR ---
DISCHARGE PAPERS REVIEWED WITH PATIENT SIGNED AND COPY IN CHART. IV ACSESS RIGHT UPPER ARM MIDLINE DCD 20 CM INTACT NO DISCOMFORT TO PATIENT. ALL BELONGINGS PACKED AND SENT WITH PATIENT. RX'S SENT WITH PATIENT. TELE MONITOR DCD. PT W/O PAIN OR RESP DISTRESS AT THIS TIME. PT IS PLEASANT AND COOPERATIVE WITH CARE.
--- NOTE | 2020-03-22 14:26 | NUR ---
PATIENT AND HIS BELONGINGS TAKEN VIA W/C TO MAIN ENTRANCE FRIEND TO TRANSPORT HOME.
== END 2020-03-22 14:32 | disposition home or self-care (01) | DRG 853 ==
LOC: 2N 11:30 → TBA 14:43 → ICU 14:43 → TBA 03-12 07:43 → ICU 03-12 14:12 → 2N 03-14 17:23 → ICU 03-17 19:17 → 2N 03-20 16:11
PROVIDERS: Hospitalist; Internal Medicine; Internal Medicine Pulmonary Disease; Pediatrics; Physician Assistant; Surgery Vascular Surgery; ADMIT Hospitalist; ATTEND Hospitalist
PROC: 06BQ4ZZ Excision of Left Saphenous Vein, Percutaneous Endoscopic Approach (ICD-10-PCS; principal; 2020-03-12)
PROC: 5A1221Z Performance of Cardiac Output, Continuous (ICD-10-PCS; principal; 2020-03-12)
PROC: 30233R1 Transfusion of Nonautologous Platelets into Peripheral Vein, Percutaneous Approach (ICD-10-PCS; principal; 2020-03-12)
PROC: 4A133J1 Monitoring of Arterial Pulse, Peripheral, Percutaneous Approach (ICD-10-PCS; principal; 2020-03-12)
PROC: 02100Z9 Bypass Coronary Artery, One Artery from Left Internal Mammary, Open Approach (ICD-10-PCS; principal; 2020-03-12)
PROC: 4A133B1 Monitoring of Arterial Pressure, Peripheral, Percutaneous Approach (ICD-10-PCS; principal; 2020-03-12)
PROC: 021109W Bypass Coronary Artery, Two Arteries from Aorta with Autologous Venous Tissue, Open Approach (ICD-10-PCS; principal; 2020-03-12)
PROC: 30233N1 Transfusion of Nonautologous Red Blood Cells into Peripheral Vein, Percutaneous Approach (ICD-10-PCS; 2020-03-14)
PROC: B54MZZA Ultrasonography of Right Upper Extremity Veins, Guidance (ICD-10-PCS; 2020-03-19)
PROC: 05HB33Z Insertion of Infusion Device into Right Basilic Vein, Percutaneous Approach (ICD-10-PCS; 2020-03-19)
DX: A41.9 Sepsis, unspecified organism (principal); I21.4 Non-ST elevation (NSTEMI) myocardial infarction; J96.02 Acute respiratory failure with hypercapnia; J96.01 Acute respiratory failure with hypoxia; E43 Unspecified severe protein-calorie malnutrition; J18.9 Pneumonia, unspecified organism; I26.99 Other pulmonary embolism without acute cor pulmonale; D62 Acute posthemorrhagic anemia; J93.9 Pneumothorax, unspecified; I25.10 Atherosclerotic heart disease of native coronary artery without angina pectoris; K59.00 Constipation, unspecified; E83.51 Hypocalcemia; E78.5 Hyperlipidemia, unspecified; E03.9 Hypothyroidism, unspecified; Z20.828 Contact with and (suspected) exposure to other viral communicable diseases; Z68.31 Body mass index [BMI] 31.0-31.9, adult; Z88.5 Allergy status to narcotic agent; Z87.891 Personal history of nicotine dependence; Z79.82 Long term (current) use of aspirin; Z79.899 Other long term (current) drug therapy; Z28.21 Immunization not carried out because of patient refusal
CPT/HCPCS: 10078; 10081; 10203; 27000; 47000; 47001; 47002; 47297; 50010; 50249; 50409; 50456; 50498; 50668; 51301; 52131; 52259; 52287; 52314; 53327; 53358; 54118; 56455; 56524; 56525; 56526; 56527; 56528; 56531; 56534; 56668; 56719; 56760; 56898; 57093; 57116; 57167; 62110; 62950; 65003; 65020; 65047; 65090; 65135; 83006; 85076